=== PATIENT | male | born 1980 | race African-American/Black ===

== ENCOUNTER 2017-02-11 08:35 | Emergency (ER) | payer OTHER ==
[~2017-02-11] VITALS: Ht 172.7 cm; Wt 77.1 kg
[2017-02-11 08:53] VITALS: BP 130/76
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
--- NOTE | 2017-02-11 09:50 | CT SCAN REPORT ---
EXAMINATION: CT HEAD WITHOUT CONTRAST CLINICAL INFORMATION: Sudden onset headache/nausea. Rule out subarachnoid COMPARISON: None TECHNIQUE: Contiguous axial imaging was performed from the skull base to vertex without intravenous administration of contrast. DLP: 815 mGy-cm FINDINGS: Increased density throughout the basilar cisterns, sylvian fissures, interhemispheric fissure, and along the tentorium is consistent with acute subarachnoid hemorrhage. This is most pronounced in the quadrigeminal cistern and prepontine cistern, biased to the right. No evidence of territorial infarction. No abnormal mass effect or midline shift is seen. Adams to white matter differentiation is well preserved. No extra-axial fluid collections are identified. The ventricles are normal in size. There is no abnormal attenuation within the brain parenchyma. The osseous structures and soft tissues are normal. The mastoid air cells and visualized portions of the paranasal sinuses are well aerated. IMPRESSION: Acute subarachnoid hemorrhage throughout the basilar cisterns, most notably in the prepontine and quadrigeminal cisterns, asymmetric to the right. 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 This critical result was discussed by telephone with Dr. Saldivar at 9:35 AM on 02/11/2017 .
[2017-02-11 09:52] LABS: ABSOLUTE BASOPHIL COUNT 0 /CUMM (0.0-0.2); ABSOLUTE EOSINOPHIL COUNT 0.6 /CUMM (0.0-0.7); ABSOLUTE GRANULOCYTE CT 5.3 /CUMM (1.4-6.5); ABSOLUTE LYMPH COUNT 3.1 /CUMM (1.2-3.4); ABSOLUTE MONOCYTE COUNT 0.6 /CUMM (0.10-0.60); BASOPHIL % 0.5 % (0.0-2.0); EOSINOPHIL % 5.8 % (0-5); GRANULOCYTE % 55.6 % (42.2-75.2); HEMATOCRIT 45.6 % (42-52); MEAN CORPUSCULAR HGB 28.4 PG (27.0-31.0); MEAN CORPUSCULAR HGB CONC 32.8 G/DL (33.0-37.0); MEAN CORPUSCULAR VOLUME 86.5 FL (80.0-94.0); MEAN PLATELET VOLUME 7.4 FL (7.4-10.4); PLATELET COUNT 292 /CUMM (130-400); RBC DISTRIBUTION WIDTH 14.9 % (11.5-14.5); RED BLOOD CELL CT 5.27 /CUMM (4.70-6.10); WHITE BLOOD CELL COUNT 9.6 /CUMM (4.8-10.8)
[2017-02-11 09:59] LABS: PTT 28 SEC (25-37)
== END 2017-02-11 10:35 | disposition short-term general hospital (02) ==
LOC: ERH 08:35
PROVIDERS: Nurse Practitioner Family
DX: I60.9 Nontraumatic subarachnoid hemorrhage, unspecified (principal)
CPT/HCPCS: 93005; 93010; 96374; J2405